=== PATIENT | female | born 1955 | race Caucasian/White ===

== ENCOUNTER 2017-11-02 07:17 | Day surgery (SDC) | payer OTHER ==
[2017-11-01 15:23] VITALS: BMI 32.3
--- NOTE | 2017-11-01 18:57 | HP ---
DATE OF ADMISSION: DATE OF DICTATION: 11/01/2017 ADMISSION DIAGNOSIS: Pansinusitis with nasal polyp and anosmia, possible deviated septum. HISTORY OF PRESENT ILLNESS: This 61-year-old female has had longstanding nasal and sinus problems which have failed to improve with appropriate medical therapy. She reports a 20-year history of nasal and sinus problems with intermittent infections, nasal congestion, obstruction, and sinus pressure are present. She also has nasal allergies. There is a history of nasal polyps, no history of prior nasal or sinus surgery or nasal polypectomy. She also has nasal drainage, nasal pressure, mouth breathing, ear pressure, and anosmia. She has had a response to oral prednisone but it is temporary. She says she has had no problems with a sense of smell and taste for decades. She has been found to have marked nasal polyposis and CT scan demonstrates chronic pansinusitis. She is now admitted for endoscopic sinus surgery of ethmoid maxillary and sphenoid sinus as well as nasal polypectomy, possible septoplasty. PAST MEDICAL HISTORY: Primary medical doctor is Dr. Melissa Dunn. The patient also has a history of asthma and vertigo as well as allergy. She has had previous section. Also arthroscopy for torn meniscus, breast nodule removal, and carpal tunnel. No anesthesia problems reported. She does not have any bleeding history, although she feels she bruises easily because of her steroid use. FAMILY HISTORY: Negative for bleeding problems. Her sister did have some postoperative nausea after anesthesia. PRESENT MEDICATIONS: Include Advair, Dymista, and oral prednisone as well as Xyzal . She does report an allergy to ASPIRIN and IBUPROFEN to which she had reports of an anaphylactic reaction as well as PENICILLIN, to which she had hives. She does not smoke. PHYSICAL EXAMINATION: GENERAL: Patient is a well developed female in no distress. HEENT: Head is normal. Eyes are clear. Ears are unremarkable. Nose has complete bilateral obstruction of the nasal polyps. The oral cavity shows dry mucosa. The oropharynx is normal. The voice is extremely hyponasal. DATA: Preoperative labs are pending. CT scan of the paranasal sinuses performed at [facility] at [place] on May 27, 2017, shows chronic pansinusitis involving the maxillary ethmoid and sphenoid sinuses. 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 There are no air-fluid levels. The nasal septum shows deviation to the right. There is significant nasal polyps in the nasal cavities as well as in the upper portions of the nasal cavities, and the ostiomeatal units are engulfed by aberrant soft tissue. Lamina, papyracea, fovea, ethmoidalis and cribiform plates are intact. IMPRESSION: Chronic pansinusitis, nasal polyp, anosmia with marked nasal obstruction. PLAN: Bilateral endoscopic ethmoidectomy, maxillary antrostomy with tissue removal and sphenoidotomy, possible septoplasty and nasal polypectomy, extensive and image guidance under general anesthesia. INFORMED CONSENT: Patient understands the indications, alternatives, nature of risks and benefits of proposed surgery, potential complications including but not limited to anesthesia, bleeding, infection, recurrence, numbness, whole in the septum, persistent reduced sense of smell, eye injury, brain injury were discussed in detail. She understands and accepts these risks and wished to proceed with surgery. Questions answered fully. RAH ALANIS M.D. [id number] MTDD
[2017-11-02] MEDS ORDERED: MIDAZOLAM HCL 2 MG/2 ML SINGLE DOSE VIAL ONE (09:05)
[2017-11-02] MEDS ORDERED: ONDANSETRON 4 MG/2 ML VIAL IVPUSH PRN (09:08)
--- NOTE | 2017-11-02 09:12 | HP ---
History & Physical Update - History History: No Change - Physical Physical: No Change - Assessment Assessment: No Change - Plan Plan: No Change
[2017-11-02] MEDS ORDERED: COCAINE HCL 4% TOPICAL SOLUTION 4 ML BOTTLE TP ONE ×2 (09:13→09:25)
[2017-11-02] MEDS ORDERED: TRIMETHOBENZAMIDE HCL 200MG/2ML INJ IM PRN (09:14)
[2017-11-02] MEDS ORDERED: oxyCODONE HCL 5 MG TABLET PO PRN (09:14)
[2017-11-02] MEDS ORDERED: ACETAMINOPHEN 325 MG TABLET (FP) PO PRN (09:14)
[2017-11-02] MEDS ORDERED: EPINEPHrine/PF 1 MG/1 ML (1:1,000) AMPULE ONE (09:15)
[2017-11-02] MEDS ORDERED: LACTATED RINGERS SOLUTION 1,000 ML IV SCH (09:15)
[2017-11-02] MEDS ORDERED: LIDOCAINE HCL 1%, 10 MG/ML (20ML VIAL) ONE (09:16)
[2017-11-02] MEDS ORDERED: LIDOCAINE 1%/EPI 1:100000 (20 ML MULTI DOSE VIAL) IJ ONE (09:50)
[2017-11-02] MEDS ORDERED: PROPOFOL 20 ML ONE ×2 (10:36→11:00)
--- NOTE | 2017-11-02 11:09 | OP ---
Operative Note - Note: Operative Date: 11/02/17 ([id number]) Pre-Operative Diagnosis: chronic pansinusitis, nasal polyposis, anosmia, deviated septum Operation: bilateral endoscopic 1)ethmoidectomy, anterior and posterior, 2) maxillary antrostomy, 3) sphenoidotomy 4)nasal polypectomy, extensive Findings: bilateral nasal polyps middle meati, superior meati, sphenoethmoid recesses, nasal septum obstructed OM[facility] thick mucus right greater than left maxillary sinus Implants: none Post-Operative Diagnosis: Same as Pre-op Surgeon: Duane Velasco Anesthesiologist/ELECTRIC MOTOR AND GENERATOR ASSEMBLER: Lory Barajas MD Anesthesia: General Specimens Removed: left and right nasal polyps and ethmoid tissue Estimated Blood Loss (mls): 50 Blood Volume Replaced (mls): 0 Operative Report Dictated: Yes
[2017-11-02] MEDS ORDERED: ACETAMINOPHEN INJECTION 100 ML IVPB ONE (11:23)
[2017-11-02] MEDS ORDERED: ACETAMINOPHEN 1000 MG/100 ML VIAL (NON FORMULARY) IVPB ONE (11:25)
[2017-11-02] MEDS ORDERED: oxyCODONE HCL 5 MG TABLET ONE (13:54)
[2017-11-02 16:08] VITALS: TEMP 97.5
[2017-11-02 16:11] VITALS: BP 129/67; PULSE 71
--- NOTE | 2017-11-03 06:42 | OP ---
DATE OF OPERATION: 11/02/2017 PREOPERATIVE DIAGNOSES: Chronic pansinusitis, nasal polyposis, anosmia and septal deviation. POSTOPERATIVE DIAGNOSES: Chronic pansinusitis, nasal polyposis, anosmia and septal deviation. PROCEDURE: 1. Bilateral endoscopic ethmoidectomy, anterior and posterior. 2. Bilateral endoscopic maxillary antrostomy. 3. Bilateral endoscopic sphenoidotomy. 4. Nasal polypectomy, extensive. INDICATIONS: This 61-year-old female has had longstanding nasal and sinus problems for approximately 20 years with obstruction, pain and pressure, drainage and poor sense of smell. She gets intermittent improvement with oral steroids. She has not had any prior surgery. Exam in the office demonstrated marked nasal polyposis with obstruction. CT scan demonstrates chronic pansinusitis involving ethmoid, maxillary and sphenoid sinuses. She has aplasia of the frontal sinuses. The nasal septum has deviated to the right. She is now brought to surgery for treatment. FINDINGS: Extensive nasal polyposis emanating from the middle meatuses, superior meatuses and sphenoethmoid recesses. Deviation of the septum to the right, mild and more superior. PROCEDURE: Patient was brought to the operating room and placed on the operating table in the supine position. General endotracheal anesthesia was induced to a satisfactory level. She was prepped and draped in the usual fashion. CT scan data and images were present and displayed in the operating room for reference throughout the case. Lidocaine 1% with epinephrine 1:100,000 was infiltrated into the nasal septum and the visible nasal polyps. Cocaine 4% was placed within the nasal cavities on pledgets. The pledgets were removed. Nasal endoscopy was performed with the 0-degree telescope. The inferior turbinates were minimally enlarged. There was marked nasal polyposis from the middle meatuses and superior meatuses as well as the sphenoethmoid recesses. The middle turbinates were difficult to discern because of the degree of polyposis. The nasopharynx was visualized and was patent with adenoidectomy scar and no other findings. Lidocaine with epinephrine was infiltrated in the lateral nasal galo and additional cocaine 4% was placed within the middle meatuses. The left nasal polyps were first addressed. Straight and upbiting forceps were used to perform polypectomy followed by the Xomed microdebrider with continuous suction irrigation. As the polyps were removed the middle turbinate became evident and was preserved. The uncinate process was removed. Anterior and posterior ethmoidectomy was performed. The lamina papyracea and the fovea ethmoidalis were preserved. The natural ostium of the maxillary sinus was identified and enlarged. Scant clear mucus was aspirated. The interior of the sinus was visualized and the mucosa was unremarkable. Sphenoethmoid recess was approached and polypoid tissue was removed with the forceps and microdebrider. This exposed the sphenoid ostium. Attention was then turned toward the right paranasal sinuses. The polyps were removed from the middle meatuses and the superior meatuses. A great deal of the polyps on the right side arose from the nasal septum itself. After these were removed with a lacrimal debrider cauterization was performed for hemostasis. The high reaches of the cribriform area were intact. There was polypoid degeneration of the right middle turbinate and excess tissue was removed with the microdebrider. The ethmoid area was entered. Anterior and posterior ethmoidectomy was performed. Again the lamina papyracea and the fovea ethmoidalis were preserved. The ethmoid sinus was entered via the natural ostium which was then enlarged. Very thick white TLO viscous mucus was aspirated and a portion was sent to Microbiology for culture and sensitivity. The sphenoethmoid recess was then addressed. Polypoid tissue was removed and the sphenoid ostium exposed. Hemostasis was achieved with electrocauterization. Even thought there was some deviation of the septum to the right it was not obstructing sinus drainage which was more inferior and posterior. In addition, the right septal mucosa in that area was abnormal being the origin of many of the right-sided superior nasal polyps. Therefore, septoplasty was not performed. Excellent inferior nasal airways and sinus drainage were present and visualized. NasoPore dressings were then placed in the ethmoid bed and the superior meatus on the left and the sphenoethmoid reassessed on the left. Folded Telfa gauze was placed coated with bacitracin and joined with a silk suture. Patient tolerated the procedure well. She was then awakened from general anesthesia and transferred to the PACU in stable condition. Estimated blood loss was 50 mL. She received crystalloid during the procedure. Specimens included right and left nasal polyps and ethmoid tissue which were sent to Pathology for routine studies. There were no complications. RAH ALANIS M.D. [id number]
--- NOTE | 2017-11-07 09:43 | PATH ---
Surgical Pathology Report Patient Name: JENNIFER PINO [facility]. Rec. #: [id number] /Age/Gender: 1955 (Age: 61) / F Account: [id number] Location: [facility] Taken: 11/02/2017 Received: 11/02/2017 Reported: 11/07/2017 Physicians: Duane Velasco M.D. Specimen(s) Received A: ETHMOID TISSUE AND POLYP BILATERAL B: LEFT POLYP AND ETHMOID TISSUE C: RIGHT POLYP AND ETHMOID TISSUE Clinical History Chronic maxillary, frontal, ethmoid sinusitis Final Diagnosis A. EPIDERMOID TISSUE AND CHRONIC BILATERAL, EXCISION: FRAGMENTS OF SINONASALINFLAMMATORY POLYPS AND CHRONIC SINUSITIS. B. LEFT POLYP AND ETHMOID TISSUE: CHRONIC SINUSITIS AND SINONASALINFLAMMATORY POLYPS. C. RIGHT POLYP AND ETHMOID TISSUE: CHRONIC SINUSITIS AND SINONASALINFLAMMATORY POLYPS. Electronically Signed Cindy Tovar M.D. Gross Description A. Received in formalin labeled "polyp and ethmoid tissue," is a 3.0 x 2.0 x 0.2 cm aggregate of brumfield soft tissue fragments admixed with possible cartilage and possible bone. The formalin is filtered and the specimen is entirely submitted in one cassette, following decalcification. B. Received in formalin labeled "left polyp and ethmoid tissue," is a 4.3 x 2.5 x 0.4 cm aggregate of brumfield, polypoid soft tissue fragments admixed with possible cartilage and possible bone. The specimen is entirely submitted in 4 cassettes (cassettes 3-4 following decalcification). C. Received in formalin labeled "right polyp and ethmoid tissue," is a 3.5 x 2.4 x 0.3 cm aggregate of brumfield, polypoid soft tissue fragments admixed with possible cartilage and possible bone. The specimen is entirely submitted in 2 cassettes (cassette 2 following decalcification). 11/03/201711/03/2017
== END 2017-11-02 15:00 | disposition home or self-care (01) ==
LOC: JASU-SURG 07:17
PROVIDERS: ATTEND Otolaryngology
PROC: 09TU8ZZ Resection of Right Ethmoid Sinus, Via Natural or Artificial Opening Endoscopic (ICD-10-PCS; 2017-11-02)
PROC: 09BM8ZX Excision of Nasal Septum, Via Natural or Artificial Opening Endoscopic, Diagnostic (ICD-10-PCS; 2017-11-02)
PROC: 09BW8ZX Excision of Right Sphenoid Sinus, Via Natural or Artificial Opening Endoscopic, Diagnostic (ICD-10-PCS; 2017-11-02)
PROC: 09BL8ZX Excision of Nasal Turbinate, Via Natural or Artificial Opening Endoscopic, Diagnostic (ICD-10-PCS; 2017-11-02)
PROC: 09TV8ZZ Resection of Left Ethmoid Sinus, Via Natural or Artificial Opening Endoscopic (ICD-10-PCS; principal; 2017-11-02 09:00)
DX: J32.4 Chronic pansinusitis (principal); J33.8 Other polyp of sinus; R43.0 Anosmia; J34.2 Deviated nasal septum
CPT/HCPCS: 87070; 87186; 87205; 88304-TC; 94760; J0131